=== PATIENT | male | born 1965 | race African-American/Black ===

== ENCOUNTER 2024-01-14 15:10 | Emergency (ER) | payer OTHER ==
[~2024-01-14] VITALS: Ht 188 cm; Wt 103.0 kg
[2024-01-14 15:25] VITALS: BP 126/78; PULSE 84; RESP 16; TEMP 98.5; O2SAT 98
[2024-01-14] MEDS ORDERED: NAPR220C61 MT (18:11)
== END 2024-01-14 19:07 | disposition home or self-care (01) ==
LOC: ER 15:10
DX: S89.91XA Unspecified injury of right lower leg, initial encounter (principal); X58.XXXA Exposure to other specified factors, initial encounter; Y93.89 Activity, other specified; Y92.89 Other specified places as the place of occurrence of the external cause; Y99.8 Other external cause status
CPT/HCPCS: 73560; 99283

== ENCOUNTER 2025-03-18 11:57 | Emergency (ER) | payer OTHER ==
[~2025-03-18] VITALS: Ht 182.9 cm; Wt 104.0 kg
[~2025-03-18 11:57] MED LIST: NAPR220C61 MT
[2025-03-18 12:01] VITALS: PULSE 100; RESP 18; O2SAT 99
[2025-03-18 12:04] VITALS: BP 129/86; TEMP 36.7; O2SAT 96
== END 2025-03-18 12:40 | disposition left against medical advice (07) ==
LOC: ER 11:57
DX: M25.561 Pain in right knee (principal); M25.562 Pain in left knee; V49.40XA Driver injured in collision with unspecified motor vehicles in traffic accident, initial encounter; Y93.89 Activity, other specified; Y92.89 Other specified places as the place of occurrence of the external cause; Y99.8 Other external cause status
CPT/HCPCS: 99282